=== PATIENT | female | born 1990 | race Two or more races ===

== ENCOUNTER 2018-08-10 20:02 | Inpatient (IN) | payer OTHER ==
--- NOTE | 2018-08-10 20:10 | PDOC ---
History of Present Illness - General History Source: Patient, Care Provider, Legal Guardian(s) (Patient is mentally disabled, history given primarily from family) Exam Limitations: No Limitations - History of Present Illness Initial Comments: 08/10/18 21:21 The patient is a 28 year old female, with a significant past medical history of epilepsy and mental retardation who presents to the emergency department with right lower abdominal pain since last night. As per family the patient states the pain is associated with 12 episodes of vomiting, fevers, and chills. The patient reports her last episode of vomiting was 5pm today. The patient notes she did not take her medication today due to her poor po intake. Patient notes her last meal was last night (rice and beans). The patient denies chest pain, shortness of breath, headache or dizziness. The patient denies nausea, diarrhea or constipation. The patient denies dysuria, frequency, urgency and hematuria. PAST MEDICAL HISTORY: none reported PAST SURGICAL HISTORY: no significant history FAMILY HISTORY: no pertinent history SOCIAL HISTORY: Pt lives with family MEDICATIONS: reviewed ALLERGIES: As per nursing notes <Eugenio Johns - Last Filed: 08/10/18 21:32> - General History Source: Patient Exam Limitations: No Limitations - History of Present Illness Initial Comments: This is a 28-year-old female who comes in with her family for evaluation of abdominal pain nausea and vomiting. Patient has not had any fevers. Patient has 2 days of nausea vomiting and abdominal pain most of which improved this afternoon into evening after she was at a urgent care center however the urgent care center called family this evening and said to bring her to the hospital as her blood work was very abnormal. Patient is mentally handicapped so unable to really give adequate history. History is by family On my exam patient had no abdominal pain on deep palpation. Her bowel sounds were normal she appeared comfortable. Patient's white count was elevated so we'll obtain CAT scan 08/10/18 23:49 CAT scan shows inflammation in the pelvis in addition to that her appendix is at the upper limit of normal with some questionable inflammation in the area as well. Is uncertain whether the inflammation is secondary to what is going on her pelvis or something with her appendix. However on palpation there is no tenderness over the pelvic area or the appendix. Patient able to tolerate by mouth's here in the emergency room she did appear to be somewhat dehydrated so was given a liter fluid and is able to urinate. Urine showed a moderate amount of bacteria some white cells and patient has her menses so there was a moderate amount of red cells as well. Well start patient on ceftriaxone, blood cultures and urine culture were sent Discussed with hospitalist who has accepted the patient for an observation admission . Signout given to the admitting hospitalist, who accepts the patient. Discussed plan with the patient family at bedside, Patient and family aware of the plan and agree. Patient is clinically unchanged and stable. <Dimitry De La Torre I - Last Filed: 08/10/18 23:57> - General Chief Complaint: Pain, Acute Stated Complaint: ABDOMINAL PAIN Time Seen by Provider: 08/10/18 20:08 Past History <Eugenio Johns - Last Filed: 08/10/18 21:32> <Dimitry De La Torre I - Last Filed: 08/10/18 23:57> - Past Medical History Allergies/Adverse Reactions: Allergies Allergy/AdvReac Type Severity Reaction Status Date / Time No Known Allergies Allergy Verified 08/10/18 20:06 Home Medications: Ambulatory Orders Calcium Carbonate [Calcium] 600 mg PO DAILY 08/10/18 Folic Acid 1 mg PO DAILY 08/10/18 Lacosamide [Vimpat -] 50 mg PO BID 08/10/18 Lamotrigine [LaMICtal -] 100 mg PO DAILY 08/10/18 Rifampin 150 mg PO DAILY 08/10/18 levETIRAcetam [Keppra -] 1,500 mg PO BID 08/10/18 Review of Systems - Review of Systems Able to Perform ROS?: Yes Comments:: 08/10/18 21:27 General: (+) fevers (+) chills, no weakness, no weight loss HEENT: No change in vision. No sore throat,. No ear pain CardioVascular: No chest pain or shortness of breath Respiratory:No cough, or wheezing. Gastrointestinal:(+) abdominal pain (+) vomiting. no nausea, diarrhea or constipation, No rectal bleeding Genitourinary: No dysuria, hematuria, or frequency Musculoskeletal: No joint or muscle pain or swelling Neurologic: No headache, vertigo, dizziness or loss of consciousness Psychiatric: nor depression Skin: No rashes or easy bruising Endocrine: no increased thirst or abnormal weight change Allergic: no skin or latex allergy All other systems reviewed and normal All Other Systems: Reviewed and Negative <Eugenio Johns - Last Filed: 08/10/18 21:32> *Physical Exam - Vital Signs Last Vital Signs Temp Pulse Resp BP Pulse Ox 98.1 F 115 H 18 123/79 100 08/10/18 20:14 08/10/18 20:14 08/10/18 20:14 08/10/18 20:14 08/10/18 20:14 - Physical Exam Comments: 08/10/18 21:28 General: Well-nourished well-developed individual, no acute distress HEENT: Throat: (+) dry mucous membranes, tonsils normal, no erythema or exudate Neck: Supple, no meningeal signs, no lymphadenopathy Eyes::Pupils equal reactive and round, extraocular motion intact Chest: Nontender to palpation Cardiac: S1-S2 normal, regular rate and rhythm, no murmurs rubs or gallops Respiratory: Lungs clear to auscultation bilateral Abdomen: Soft, nondistended, normal bowel sounds, nontender to palpation diffusely Extremities: Warm, dry, no cyanosis, clubbing, or edema Skin: No rashes Neuro: Alert and oriented x3, nonfocal exam, grossly intact, normal gait Psych: Normal mood and affect <Eugenio Johns - Last Filed: 08/10/18 21:32> Moderate Sedation - Procedure Monitoring Vital Signs: Procedure Monitoring Vital Signs Temperature 98.1 F 08/10/18 20:14 Pulse Rate 115 H 08/10/18 20:14 Respiratory Rate 18 08/10/18 20:14 Blood Pressure 123/79 08/10/18 20:14 O2 Sat by Pulse Oximetry (%) 100 08/10/18 20:14 <Eugenio Johns - Last Filed: 08/10/18 21:32> ED Treatment Course - LABORATORY CBC & Chemistry Diagram: 08/10/18 21:00 08/10/18 21:10 - ADDITIONAL ORDERS Additional order review: 08/10/18 21:00 RBC 4.15 MCV 83.6 MCHC 32.0 RDW 15.7 H MPV 8.5 Neutrophils % 76.7 Lymphocytes % 12.7 Monocytes % 9.0 Eosinophils % 0.0 Basophils % 1.6 <Corj,Xhesika - Last Filed: 08/10/18 21:32> - LABORATORY CBC & Chemistry Diagram: 08/10/18 21:00 08/10/18 21:10 <Dimitry De La Torre I - Last Filed: 08/10/18 23:57> *DC/Admit/Observation/Transfer - Attestations Scribe Attestion: 08/10/18 21:33 Documentation prepared by Eugenio Johns, acting as medical billing service for Dimitry De La Torre MD <Eugenio Johns - Last Filed: 08/10/18 21:32> - Discharge Dispostion Decision to Admit order: Yes <Dimitry De La Torre I - Last Filed: 08/10/18 23:57> Diagnosis at time of Disposition: Pelvic inflammation in female, Cystitis Elevated WBC count Qualifiers: Leukocytosis type: unspecified Qualified Code(s): D72.829 - Elevated white blood cell count, unspecified - Discharge Dispostion Condition at time of disposition: Stable
[2018-08-10] MEDS ORDERED: SODIUM CHLORIDE 1,000 ML IV ONE (20:27)
[2018-08-10 21:14] LABS: BASO % 1.6 % (0-2.0); HEMATOCRIT 34.6 % (32.4-45.2); HEMOGLOBIN 11.1 GM/dl (10.7-15.3); LYMPH % 12.7 % (8-40); MCH 26.8 pg (25.7-33.7); MEAN CELL VOLUME 83.6 fl (80-96); MEAN PLT VOLUME 8.5 fl (7.5-11.1); NEUT % 76.7 % (42.8-82.8); PLATELET COUNT 591 K/MM3 (134-434); RBC 4.15 M/mm3 (3.60-5.2); RDW 15.7 % (11.6-15.6)
[2018-08-10 21:24] LABS: URINE COLOR DK YELLOW
[2018-08-10 21:25] LABS: URINE APPEARANCE CLOUDY; URINE BILIRUBIN 1+ (NEGATIVE); URINE GLUCOSE (UA) NEGATIVE (NEGATIVE); URINE KETONE TRACE (NEGATIVE); URINE NITRITE POSITIVE (NEGATIVE); URINE PROTEIN 2+ (NEGATIVE); URINE UROBILINOGEN 1 (0.2-1.0)
[2018-08-10 21:26] LABS: ALBUMIN 4.1 g/dl (3.4-5.0); ALK PHOS 63 U/L (45-117); ANION GAP 12 MMOL/L (8-16); BILIRUBIN,TOTAL 1.4 mg/dl (0.2-1); BLOOD UREA NITROGEN 14 mg/dl (7-18); CALCIUM 9.5 mg/dl (8.5-10); CHLORIDE 96 mmol/L (98-107); CO2 27 mmol/L (21-32); CREATININE 0.7 mg/dl (0.55-1.3); EPI CELLS 2+ /HPF; GLUCOSE,RANDOM 107 mg/dl (74-106); POTASSIUM 3.7 mmol/L (3.5-5.1); SGOT/AST 17 U/L (15-37); SGPT/ALT 14 U/L (13-61); SODIUM 135 mmol/L (136-145); TOT PROT 8.8 g/dl (6.4-8.2); URINE BACTERIA 4+ /hpf (NEGATIVE); URINE LEUK ESTERASE NEGATIVE (NEGATIVE); URINE WBC 0-2 (0-5)
[2018-08-10 21:48] LABS: LIPASE 107 U/L (73-393)
[2018-08-10] MEDS ORDERED: CEFTRIAXONE 1,000 MG in DEXTROSE 5%-WATER - 50 ML IVPB ONE (23:23)
[2018-08-10] MEDS ORDERED: cefTRIAXone SODIUM 1 GM VIAL ONE (23:25)
[2018-08-10] MEDS ORDERED: DEXTROSE 5%-0.45% SALINE 1,000 ML IV SCH (23:45)
[2018-08-11 01:27] VITALS: BMI 30.6
[2018-08-11] MEDS: DEXTROSE 5%-0.45% SALINE 1,000 ML IV SCH (02:32)
[2018-08-11 07:57] LABS: BASO % 0.2 % (0-2.0); HEMOGLOBIN 9.4 GM/dl (10.7-15.3); RDW 15.4 % (11.6-15.6)
[2018-08-11 08:04] LABS: EOS % 0.2 % (0-4.5); HEMATOCRIT 28.9 % (32.4-45.2); LYMPH % 14.3 % (8-40); MCH 27.6 pg (25.7-33.7); MCHC 32.6 g/dl (32.0-36.0); MEAN CELL VOLUME 84.6 fl (80-96); MEAN PLT VOLUME 8.2 fl (7.5-11.1); MONO % 8.2 % (3.8-10.2); NEUT % 77.1 % (42.8-82.8); PLATELET COUNT 463 K/MM3 (134-434); RBC 3.41 M/mm3 (3.60-5.2); WHITE BLOOD COUNT 11.3 K/mm3 (4.0-10.8)
[2018-08-11 08:06] LABS: AMYLASE 44 U/L (25-115); ANION GAP 11 MMOL/L (8-16); BLOOD UREA NITROGEN 11 mg/dl (7-18); CALCIUM 8.6 mg/dl (8.5-10); CHLORIDE 101 mmol/L (98-107); CO2 24 mmol/L (21-32); CREATININE 0.5 mg/dl (0.55-1.3); GLUCOSE,RANDOM 87 mg/dl (74-106); POTASSIUM 3.7 mmol/L (3.5-5.1); SODIUM 136 mmol/L (136-145)
[2018-08-11] MEDS: LACOSAMIDE 50 MG TABLET PO SCH ×2 (09:35→21:11)
[2018-08-11] MEDS: levETIRAcetam 500 MG TABLET (FP) PO SCH ×2 (09:36→21:12)
[2018-08-11] MEDS: lamoTRIgine 100 MG TABLET (FP) PO SCH (09:36)
--- NOTE | 2018-08-11 09:38 | HP ---
CHIEF COMPLAINT: RLQ pain PCP: Mother cannot locate info HISTORY OF PRESENT ILLNESS: Patient is a 28 year-old female, with a significant past medical history of epilepsy, mental retardation/developmental delay, left ovarian cyst, irregular menses, and hidradenitis suppurativa. Patient presented to the emergency department yesterday with abdominal pain since Thursday night. Patient's sister provides the history on this admission. Patient was readying for bed Thursday night when she complained of diffuse abdominal pain and started vomiting. From 11pm to 5pm the next day she vomited about a dozen times. There was associated chills. There have been no further episodes of vomiting since arrival to ED. ER course was notable for: (1) WBC 17.0k, afebrile (2) Total bili 1.4 (3) CTAP: multicystic ovaries; appendix borderline diameter 0.6cm with slight concentric wall thickening Recent Travel: No PAST MEDICAL HISTORY: Epilepsy Mental retardation/developmental delay Cystic ovaries with irregular menses Hidradenitis suppurativa PAST SURGICAL HISTORY: None reported Social History: Smoking: no Alcohol: no Drugs: no Family History: Allergies No Known Allergies Allergy (Verified 08/10/18 20:06) HOME MEDICATIONS: Home Medications Medication Instructions Recorded Calcium Carbonate [Calcium] 600 mg PO DAILY 08/10/18 Folic Acid 1 mg PO DAILY 08/10/18 Lacosamide [Vimpat -] 50 mg PO BID 08/10/18 Lamotrigine [LaMICtal -] 100 mg PO DAILY 08/10/18 Rifampin 150 mg PO DAILY 08/10/18 levETIRAcetam [Keppra -] 1,500 mg PO BID 08/10/18 REVIEW OF SYSTEMS: patient unable to provide due to developmental delay PHYSICAL EXAMINATION Vital Signs - 24 hr 08/10/18 08/10/18 08/11/18 20:14 23:54 00:33 Temperature 98.1 F 98.1 F 98.1 F Pulse Rate 115 H 117 H Pulse Rate [ 102 H Left] Respiratory 18 20 16 Rate Blood Pressure 123/79 144/74 Blood Pressure 120/80 [Right] O2 Sat by Pulse 100 97 Oximetry (%) 08/11/18 08/11/18 06:00 09:31 Temperature 98.5 F 98.9 F Pulse Rate 93 H 96 H Pulse Rate [ Left] Respiratory 20 18 Rate Blood Pressure 105/60 110/65 Blood Pressure [Right] O2 Sat by Pulse 96 Oximetry (%) GENERAL: Awake, alert. Answers questions simply and appropriately, interacting with family. Calm, cooperative, smiling, in no apparent distress. HEAD: Normal with no signs of trauma. EYES: Pupils equal, round and reactive to light, extraocular movements intact, sclera anicteric, conjunctiva clear. No lid lag. EARS, NOSE, THROAT: Ears normal, nares patent, oropharynx clear without exudates. Moist mucous membranes. NECK: Normal range of motion, supple without lymphadenopathy, JVD, or masses. LUNGS: Breath sounds equal, clear to auscultation bilaterally. No wheezes, and no crackles. No accessory muscle use. HEART: Regular rate and rhythm, normal S1 and S2 without murmur, rub or gallop. ABDOMEN: Soft, nontender, not distended, normoactive bowel sounds, no guarding, no rebound, no masses. MUSCULOSKELETAL: Normal range of motion at all joints. No bony deformities or tenderness. No CVA tenderness. UPPER EXTREMITIES: 2+ pulses, warm, well-perfused. No cyanosis. No clubbing. No peripheral edema. LOWER EXTREMITIES: 2+ pulses, warm, well-perfused. No calf tenderness. No peripheral edema. NEUROLOGICAL: Cranial nerves II-XII intact. Normal speech. SKIN: multiple small pustules both axilla, some draining Laboratory Results - last 24 hr 08/10/18 08/10/18 08/10/18 00:17 00:17 00:17 WBC 17.0 H RBC 4.15 Hgb 11.1 Hct 34.6 MCV 83.6 MCH 26.8 MCHC 32.0 RDW 15.7 H Plt Count 591 H MPV 8.5 Absolute Neuts (auto) 13.0 Neutrophils % 76.7 Lymphocytes % 12.7 Monocytes % 9.0 Eosinophils % 0.0 Basophils % 1.6 Sodium 135 L Potassium 3.7 Chloride 96 L Carbon Dioxide 27 Anion Gap 12 BUN 14 Creatinine 0.7 Creat Clearance w eGFR > 60 Random Glucose 107 H Lactic Acid Calcium 9.5 Total Bilirubin 1.4 H AST 17 ALT 14 Alkaline Phosphatase 63 Total Protein 8.8 H Albumin 4.1 Total Amylase Lipase 107 Serum , Qual Urine Color Dk yellow Urine Appearance Cloudy Urine pH 7.0 Ur Specific [place] 1.025 Urine Protein 2+ H Urine Glucose (UA) Negative Urine Ketones Trace H Urine Blood 3+ H Urine Nitrite Positive Urine Bilirubin 1+ H Urine Urobilinogen 1 Ur Leukocyte Esterase Negative Urine RBC 10-20 Urine WBC 0-2 Ur Epithelial Cells 2+ Urine Bacteria 4+ 08/11/18 08/11/18 08/11/18 00:15 00:15 07:15 WBC 11.3 H RBC 3.41 L Hgb 9.4 L Hct 28.9 L D MCV 84.6 MCH 27.6 MCHC 32.6 RDW 15.4 Plt Count 463 H MPV 8.2 Absolute Neuts (auto) 8.8 Neutrophils % 77.1 Lymphocytes % 14.3 Monocytes % 8.2 Eosinophils % 0.2 Basophils % 0.2 Sodium Potassium Chloride Carbon Dioxide Anion Gap BUN Creatinine Creat Clearance w eGFR Random Glucose Lactic Acid 0.6 Calcium Total Bilirubin AST ALT Alkaline Phosphatase Total Protein Albumin Total Amylase Lipase Serum , Qual Negative Urine Color Urine Appearance Urine pH Ur Specific [place] Urine Protein Urine Glucose (UA) Urine Ketones Urine Blood Urine Nitrite Urine Bilirubin Urine Urobilinogen Ur Leukocyte Esterase Urine RBC Urine WBC Ur Epithelial Cells Urine Bacteria 08/11/18 07:15 WBC RBC Hgb Hct MCV MCH MCHC RDW Plt Count MPV Absolute Neuts (auto) Neutrophils % Lymphocytes % Monocytes % Eosinophils % Basophils % Sodium 136 Potassium 3.7 Chloride 101 Carbon Dioxide 24 Anion Gap 11 BUN 11 Creatinine 0.5 L Creat Clearance w eGFR > 60 Random Glucose 87 Lactic Acid Calcium 8.6 Total Bilirubin AST ALT Alkaline Phosphatase Total Protein Albumin Total Amylase 44 Lipase Serum , Qual Urine Color Urine Appearance Urine pH Ur Specific [place] Urine Protein Urine Glucose (UA) Urine Ketones Urine Blood Urine Nitrite Urine Bilirubin Urine Urobilinogen Ur Leukocyte Esterase Urine RBC Urine WBC Ur Epithelial Cells Urine Bacteria ASSESSMENT/PLAN: 28 year-old female, with a significant past medical history of epilepsy, mental retardation/developmental delay, cystic ovaries with irregular menses and chronic axillary and groin abscesses. Admitted for acute appendicitis. Acute appendicitis --08/10 CTAP: appendix borderline diameter o.6cm and slight concentric wall thickening; multicystic ovaries with free fluid --WBC trending down --continue empiric ceftriaxone --to OR today with Dr. Land Left ovarian cyst --seen on transvaginal US in July 2017 --last seen by [facility] in February, recommended OCP for regulation of irregular menses, mother declined Hidradenitis suppurativa --follows with a moth proofer on a regular basis, last seen in June 2018 --outpatient followup Epilepsy --experiences seizures 2-3 times per month --continue lacosamide, lamictal, Keppra Developmental delay --at baseline functioning per mother and sister FEN Fluids: D51/2NS@42mL/hr Electrolytes: replete as indicated Nutrition: NPO DVT prophylaxis: SCDs, oob, ambulation Dispo: continues to require inpatient care. Full code. Visit type - Emergency Visit Emergency Visit: Yes ED Registration Date: 08/10/18 Care time: The patient presented to the Emergency Department on the above date and was hospitalized for further evaluation of their emergent condition. - New Patient This patient is new to me today: Yes Date on this admission: 08/11/18 - Critical Care Critical Care patient: No
[2018-08-11] MEDS ORDERED: RIFAMPIN 150 MG PO SCH (10:00)
[2018-08-11] MEDS ORDERED: CALCIUM (OYSTER SHELL) 500 MG TABLET (FP) PO SCH (10:00)
[2018-08-11] MEDS ORDERED: CEFTRIAXONE 1 G/50 ML PREMIX 50 ML IVPB SCH (10:00)
[2018-08-11] MEDS ORDERED: FOLIC ACID 1 MG TABLET (FP) PO SCH (10:00)
--- NOTE | 2018-08-11 11:04 | PN ---
Progress Note, Physician - Current Medication List Current Medications: Active Medications Ceftriaxone Sodium (Ceftriaxone 1 Gm-D5w Bag) 50 mls @ 100 mls/hr IVPB DAILY [facility]; Protocol Last Admin: 08/11/18 09:35 Dose: 100 mls/hr Dextrose/Sodium Chloride (D5-1/2ns -) 1,000 mls @ 42 mls/hr IV ASDIR [facility] Last Admin: 08/11/18 02:32 Dose: 42 mls/hr Lacosamide (Vimpat -) 50 mg PO BID [facility] Last Admin: 08/11/18 09:35 Dose: 50 mg Lamotrigine (Lamictal -) 100 mg PO DAILY [facility] Last Admin: 08/11/18 09:36 Dose: 100 mg Levetiracetam (Keppra -) 1,500 mg PO BID [facility] Last Admin: 08/11/18 09:36 Dose: 1,500 mg Non-Formulary Medication (Rifampin [Rifampin]) 150 mg PO DAILY [facility] - Objective Vital Signs: Vital Signs Temperature 98.9 F 08/11/18 09:31 Pulse Rate 96 H 08/11/18 09:31 Respiratory Rate 18 08/11/18 09:31 Blood Pressure 110/65 08/11/18 09:31 O2 Sat by Pulse Oximetry (%) 96 08/11/18 09:31 Constitutional: Yes: Well Nourished, No Distress, Calm Labs: CBC, BMP 08/11/18 07:15 08/11/18 07:15 Problem List - Problems (1) Appendicitis Code(s): K37 - UNSPECIFIED APPENDICITIS Qualifiers: Appendicitis type: acute appendicitis Acute appendicitis type: with localized peritonitis Appendicitis gangrene presence: without gangrene Appendicitis perforation presence: without perforation Appendicitis abscess presence: without abscess Qualified Code(s): K35.30 - Acute appendicitis with localized peritonitis, without perforation or gangrene (2) Pelvic inflammation in female Code(s): N73.9 - FEMALE PELVIC INFLAMMATORY DISEASE, UNSPECIFIED
--- NOTE | 2018-08-11 11:10 | CONSULT ---
Consult Consult Specialty:: General Surgery Reason for Consultation:: appendicistis - History of Present Illness Chief Complaint: Abdominal pain and vomiting History of Present Illness: 28 yo female PMH epilepsy, mental retardation who presents to the emergency department with right lower abdominal pain since last night. As per family the patient states the pain is associated with 12 episodes of vomiting, fevers, and chills. The patient reports her last episode of vomiting was 5pm today. The patient notes she did not take her medication today due to her poor po intake. Patient notes her last meal was last night (rice and beans). CT shows cystic inflamatory changes in bilateral adnexa. Questionable concentric thickening of appendix. we were asked to assess. 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 - Alcohol/Substance Use Hx Alcohol Use: No History of Substance Use: reports: None - Smoking History Smoking history: Never smoked Have you smoked in the past 12 months: No - Social History Usual Living Arrangement: Assisted Living Place of : [facility] History of Recent Travel: Yes Home Medications - Allergies Allergies/Adverse Reactions: Allergies Allergy/AdvReac Type Severity Reaction Status Date / Time No Known Allergies Allergy Verified 08/10/18 20:06 - Home Medications Home Medications: Ambulatory Orders Calcium Carbonate [Calcium] 600 mg PO DAILY 08/10/18 Folic Acid 1 mg PO DAILY 08/10/18 Lacosamide [Vimpat -] 50 mg PO BID 08/10/18 Lamotrigine [LaMICtal -] 100 mg PO DAILY 08/10/18 Rifampin 150 mg PO DAILY 08/10/18 levETIRAcetam [Keppra -] 1,500 mg PO BID 08/10/18 Review of Systems - Review of Systems Constitutional: reports: Fever, Loss of Appetite. denies: Chills Eyes: denies: Blind Spots, Recent Change in Vision HENT: denies: Difficult Swallowing, Throat Pain Neck: denies: Decreased ROM, Pain on Movement Cardiovascular: denies: Chest Pain, Palpitations Respiratory: denies: SOB Gastrointestinal: reports: Abdominal Pain, Nausea, Vomiting Genitourinary: denies: Burning, Discharge, Dysuria Breasts: reports: No Symptoms Reported. denies: Pain Musculoskeletal: denies: Muscle Cramps, Muscle Weakness Integumentary: denies: Eczema, Pruritis, Rash Neurological: reports: Confusion, Pre-Existing Deficit. denies: Seizure, Syncope Endocrine: denies: Unexplained Weight Gain, Unexplained Weight Loss Hematology/Lymphatic: denies: Easily Bruised, Excessive Bleeding Psychiatric: denies: Anxiety, Depression Physical Exam Vital Signs: Vital Signs Temperature 98.9 F 08/11/18 09:31 Pulse Rate 96 H 08/11/18 09:31 Respiratory Rate 18 08/11/18 09:31 Blood Pressure 110/65 08/11/18 09:31 O2 Sat by Pulse Oximetry (%) 96 08/11/18 09:31 Constitutional: Yes: Well Nourished, No Distress, Calm, Obese Eyes: Yes: Conjunctiva Clear, EOM Intact HENT: Yes: Atraumatic, Normocephalic Neck: Yes: Supple, Trachea Midline Cardiovascular: Yes: Regular Rate and Rhythm, S1, S2 Respiratory: Yes: Regular, CTA Bilaterally Gastrointestinal: Yes: Normal Bowel Sounds, Soft, Abdomen, Obese. No: Tenderness, Tenderness, Epigastrium, Tenderness, Rebound ...Rectal Exam: Yes: Deferred Renal/: No: CVA Tenderness - Left, CVA Tenderness - Right Breast(s): No: Gynecomastia, Skin Changes Musculoskeletal: No: Joint Stiffness, Joint Swelling, Muscle Pain Extremities: No: Cool, Cyanosis Edema: No Peripheral Pulses WNL: Yes Integumentary: No: Incision, Jaundice Neurological: Yes: Alert, Oriented Psychiatric: Yes: Alert, Oriented Labs: CBC, BMP 08/11/18 07:15 08/11/18 07:15 Imaging - Results Cat Scan: Report Reviewed, Image Reviewed (bilateral adnexal complex cysts and concentric swelling of appendix) Problem List - Problems (1) Appendicitis Assessment/Plan: 28yo female with quationable early appendicitis. She is unable to reliably provide clinical updates because of her developmental delay. So to be cautious we will proceed with appendectomy. This risks and benefits were discussed at lengths with the family who agrees NPO and IVF hydration IV antibiotics OR for lap appendectomy Discussed with patient risks, benefits and alternatives of laparoscopic possible open appendectomy, including but not limited to bleeding, infection, injury to adjacent structures, leak or injury, intraabdominal abscess, incisional hernia, need for further procedures, ; alternatives include antibiotics, delayed or no surgery - risks of this include failure of nonoperative therapy, perforation, sepsis, recurrence, . Patient desires to proceed with operation - will take to OR for above. Informed consent signed for same. Code(s): K37 - UNSPECIFIED APPENDICITIS Qualifiers: Appendicitis type: acute appendicitis Acute appendicitis type: with localized peritonitis Appendicitis gangrene presence: without gangrene Appendicitis perforation presence: without perforation Appendicitis abscess presence: without abscess Qualified Code(s): K35.30 - Acute appendicitis with localized peritonitis, without perforation or gangrene (2) Pelvic inflammation in female Code(s): N73.9 - FEMALE PELVIC INFLAMMATORY DISEASE, UNSPECIFIED (3) Epilepsy Code(s): G40.909 - EPILEPSY, UNSP, NOT INTRACTABLE, WITHOUT STATUS EPILEPTICUS Qualifiers: Epilepsy type: partial symptomatic Partial seizure type: with complex partial seizures Intractability: not intractable Status epilepticus: without status epilepticus Qualified Code(s): G40.209 - Localization-related ( focal) (partial) symptomatic epilepsy and epileptic syndromes with complex partial seizures, not intractable, without status epilepticus (4) Cognitive developmental delay Code(s): F81.9 - DEVELOPMENTAL DISORDER OF SCHOLASTIC SKILLS, UNSPECIFIED
[2018-08-11 11:14] LABS: ACTIVATED PTT 26.9 SECONDS (25.2-36.5)
[2018-08-11 11:18] LABS: INR 1.6 (0.82-1.09); PROTHROMBIN TIME (PATIENT) 17.7 SEC (10.2-13.0)
[2018-08-11] MEDS ORDERED: ONDANSETRON 4 MG/2 ML VIAL IVPUSH PRN (12:34)
[2018-08-11] MEDS ORDERED: LACTATED RINGERS SOLUTION 1,000 ML IV SCH (12:45)
[2018-08-11] MEDS ORDERED: PROPOFOL 20 ML ONE ×3 (13:04→13:54)
[2018-08-11] MEDS ORDERED: SUCCINYLCHOLINE CHLORIDE 200 MG/10 ML VIAL ONE ×2 (13:05→13:54)
[2018-08-11] MEDS ORDERED: KETOROLAC TROMETHAMINE 30 MG/1 ML VIAL ONE ×3 (13:05→13:58)
[2018-08-11] MEDS ORDERED: DEXAMETHASONE SOD PHOSPHATE 4 MG/1 ML VIAL ONE ×2 (13:05→13:58)
[2018-08-11] MEDS ORDERED: ROCURONIUM BROMIDE 50 MG/5 ML VIAL ONE ×2 (13:09→13:54)
[2018-08-11] MEDS ORDERED: fentaNYL CITRATE 250 MCG/5 ML VIAL ONE (13:53)
--- NOTE | 2018-08-11 13:59 | OP ---
Operative Note - Note: Operative Date: 08/11/18 Pre-Operative Diagnosis: acute appendictis Operation: laparoscopic appenectomy Findings: PID hemmoragic inflamatory changes all of over pelvis. Appendix was inflamed. Post-Operative Diagnosis: Same as Pre-op Surgeon: Henry Clayton Anesthesiologist/MACHINE TECHNICIAN: James Cruz Anesthesia: General, Local Specimens Removed: appendix Estimated Blood Loss (mls): 5 Drains, Volume Out (mls): 100 (UOP (intraop to)) Fluid Volume Replaced (mls): 500
[2018-08-11] MEDS ORDERED: BUPIVACAINE HCL/PF 0.5% (5MG/ML) 10 ML VIAL ONE (14:20)
[2018-08-11] MEDS ORDERED: NEOSTIGMINE METHYLSULFATE 0.5 MG/ML - 10 ML MDV ONE (14:36)
[2018-08-11] MEDS ORDERED: GLYCOPYRROLATE 0.2 MG/1 ML VIAL ONE (14:36)
[2018-08-11] MEDS ORDERED: CEFOXITIN SODIUM 2 GM in DEXTROSE 5%-WATER 100 ML IVPB SCH (16:30)
[2018-08-11] MEDS: CEFOXITIN SODIUM/DEXTROSE,ISO 2 GM/50 ML BAG IVPB SCH ×2 (20:00→21:12)
[2018-08-11] MEDS ORDERED: DOXYCYCLINE HYCLATE 100 MG VIAL ONE (20:22)
[2018-08-11] MEDS ORDERED: DEXTROSE 5%-WATER 100 ML IVPB ONE (20:22)
[2018-08-11] MEDS: DOXYCYCLINE INJECTION 100 MG in DEXTROSE 5%-WATER 100 ML IVPB SCH (21:12)
[2018-08-12] MEDS: CEFOXITIN SODIUM/DEXTROSE,ISO 2 GM/50 ML BAG IVPB SCH ×4 (02:30→20:21)
[2018-08-12] MEDS ORDERED: PT OWN MED DRAWER 7, Y5N ONE ×4 (04:57→20:19)
--- NOTE | 2018-08-12 08:38 | PN ---
Physical Exam: SUBJECTIVE: Patient seen and examined at bedside. Voices no complaints. OBJECTIVE: Vital Signs Period Temp Pulse Resp BP Sys/Concepcion Pulse Ox Last 24 Hr 97.9 F-98.9 F 75-108 17-19 107-135/61-85 94-100 GENERAL: The patient is awake, alert. Calm, smiling. Answers questions appropriate to developmental level. LUNGS: CTA HEART: Regular rate and rhythm, S1, S2 without murmur, rub or gallop. ABDOMEN: Soft, nontender, nondistended; surgical port edges well-approximated, no bleeding, no exudate, no erythema EXTREMITIES: 2+ pulses, warm, well-perfused, no edema. NEUROLOGICAL: Cranial nerves II through XII grossly intact. Laboratory Results - last 24 hr 08/11/18 08/11/18 08/11/18 10:40 10:40 10:45 PT with INR 17.7 H INR 1.60 H PTT (Actin FS) 26.9 Blood Type O POSITIVE O POSITIVE Antibody Screen Negative Active Medications Generic Name Dose Route Start Last Admin Trade Name Juan Carlosq PRN Reason Stop Dose Admin Fentanyl 25 mcg 08/11/18 12:34 Sublimaze Injection - IVPUSH [id number] PRN PAIN-PACU ORDER X 4 DOSES ONLY Dextrose/Sodium Chloride 1,000 mls @ 42 mls/hr 08/11/18 01:55 08/11/18 02:32 D5-1/2ns - IV 42 mls/hr ASDIR JAYLON Administration Lactated Ringer's 1,000 mls @ 75 mls/hr 08/11/18 12:45 08/11/18 16:33 Lactated Ringers Solution IV Not Given ASDIR JAYLON Cefoxitin Sodium 2 gm/ 100 mls @ 200 mls/hr 08/11/18 16:00 Dextrose IVPB Q6H-IV JAYLON Protocol Doxycycline Hyclate 100 mg/ 100 mls @ 100 mls/hr 08/11/18 22:00 08/11/18 21: 12 Dextrose IVPB 100 mls/hr BID JAYLON Administration Cefoxitin Sodium 2 gm in 50 mls @ 100 mls/hr 08/11/18 16:45 08/12/18 02:30 Mefoxin Premix (Restricted To Id) IVPB 08/12/18 09:29 100 mls/hr Q6H-IV JAYLON Administration Protocol Lacosamide 50 mg 08/11/18 10:00 08/11/18 21:11 Vimpat - PO 50 mg BID JAYLON Administration Lamotrigine 100 mg 08/11/18 10:00 08/11/18 09:36 Lamictal - PO 100 mg DAILY JAYLON Administration Levetiracetam 1,500 mg 08/11/18 10:00 08/11/18 21:12 Keppra - PO 1,500 mg BID JAYLON Administration Non-Formulary Medication 150 mg 08/11/18 10:00 Rifampin [Rifampin] PO DAILY JAYLON Ondansetron HCl 4 mg 08/11/18 12:34 Zofran Injection IVPUSH Q6H PRN NAUSEA AND/OR VOMITING ASSESSMENT/PLAN 28 year-old female, with a significant past medical history of epilepsy, mental retardation/developmental delay, cystic ovaries with irregular menses, and hidradenitis suppurativa. Admitted for acute appendicitis. Additional history * Patient is followed at the [facility] ([phone]). Her PCP is Dr. Evangelist Mak, last seen on 01/25/18; * Had a transvaginal US on 07/30/17 (see results summarized below); has never had CORPORATE SAFETY MANAGER exam per mother; patient is not sexually active but mother consents to STD workup Acute appendicitis s/p lap appendectomy 08/11 --POD#1, doing well, tolerating PO, pain is well-managed Left ovarian cyst --report of TV US done on 07/30/17 viewed on patient portal: ; h/o irregular menses, ovarian cyst; [employer] 8th grade; Uterus normal appearance; endometrium 4.03mm; cervix wnl; right ovary normal, no mass/cyst; left ovary cystic, simple; difficult study, patient not able to tolerate --CTAP on 08/10/18: multcystic ovaries --transvaginal US ordered, mother will consent --CORPORATE SAFETY MANAGER consult pending: Bobby May fellow: [phone] Hidradenitis suppurativa --follows with a photoengraver on a regular basis, last seen in June 2018 Epilepsy --experiences seizures 2-3 times per month --continue lacosamide, lamictal, Keppra Developmental delay --at baseline functioning per mother and sister FEN Fluids: PO intake adequate Electrolytes: replete as indicated Nutrition: regular diet DVT prophylaxis: SCDs, oob, ambulation Dispo: continues to require inpatient care. Full code. Visit type - Emergency Visit Emergency Visit: Yes ED Registration Date: 08/11/18 Care time: The patient presented to the Emergency Department on the above date and was hospitalized for further evaluation of their emergent condition. - New Patient This patient is new to me today: No - Critical Care Critical Care patient: No
[2018-08-12 08:51] LABS: BASO % 0.1 % (0-2.0); HEMATOCRIT 30.1 % (32.4-45.2); HEMOGLOBIN 9.6 GM/dl (10.7-15.3); LYMPH % 8.8 % (8-40); MCH 26.8 pg (25.7-33.7); MCHC 31.9 g/dl (32.0-36.0); MEAN CELL VOLUME 83.9 fl (80-96); MEAN PLT VOLUME 8.2 fl (7.5-11.1); MONO % 5.3 % (3.8-10.2); NEUT % 85.8 % (42.8-82.8); PLATELET COUNT 524 K/MM3 (134-434); RBC 3.59 M/mm3 (3.60-5.2); RDW 15.2 % (11.6-15.6); WHITE BLOOD COUNT 14.1 K/mm3 (4.0-10.8)
[2018-08-12 09:09] LABS: ALBUMIN 3.2 g/dl (3.4-5.0); ALK PHOS 59 U/L (45-117); ANION GAP 11 MMOL/L (8-16); BILIRUBIN,TOTAL 0.7 mg/dl (0.2-1); BLOOD UREA NITROGEN 8 mg/dl (7-18); CHLORIDE 101 mmol/L (98-107); CO2 24 mmol/L (21-32); CREATININE 0.5 mg/dl (0.55-1.3); GLUCOSE,RANDOM 96 mg/dl (74-106); MAGNESIUM 1.7 mg/dL (1.8-2.4); POTASSIUM 4.1 mmol/L (3.5-5.1); SGOT/AST 13 U/L (15-37); SGPT/ALT 11 U/L (13-61); SODIUM 136 mmol/L (136-145); TOT PROT 7.5 g/dl (6.4-8.2)
[2018-08-12] MEDS ORDERED: DOXYCYCLINE HYCLATE 100 MG VIAL ONE ×2 (09:39→21:09)
[2018-08-12] MEDS ORDERED: DEXTROSE 5%-WATER 100 ML IVPB ONE ×2 (09:39→21:09)
[2018-08-12] MEDS: lamoTRIgine 100 MG TABLET (FP) PO SCH (09:59)
[2018-08-12] MEDS: DOXYCYCLINE INJECTION 100 MG in DEXTROSE 5%-WATER 100 ML IVPB SCH ×2 (09:59→21:13)
[2018-08-12] MEDS: levETIRAcetam 500 MG TABLET (FP) PO SCH ×2 (09:59→21:13)
[2018-08-12] MEDS: LACOSAMIDE 50 MG TABLET PO SCH ×2 (09:59→21:13)
[2018-08-12] MEDS: DEXTROSE 5%-0.45% SALINE 1,000 ML IV SCH (10:00)
--- NOTE | 2018-08-12 10:01 | PN ---
Progress Note (short form) - Note Progress Note: ID CONSULT DICTATED S/P APPENDECTOMY RADIOGRAPHIC/ LAPAROSCOPIC EVIDENCE OF PID AWAIT C/S CONTINUE CEFOXITIN/ DOXYCYCLINE LOANS OFFICER EVALUATION
[2018-08-12] MEDS: CEFOXITIN SODIUM 2 GM in DEXTROSE 5%-WATER - 100 ML IVPB SCH ×2 (10:11→10:13)
--- NOTE | 2018-08-12 11:24 | PN ---
Progress Note (short form) - Note Progress Note: anesthesia post op note. POD#1. S/P Appendectomy. VSS. No apparent post anesthesia complications.
--- NOTE | 2018-08-12 11:27 | CONS ---
DATE OF CONSULTATION: DATE OF DICTATION: 08/12/2018 HISTORY OF PRESENT ILLNESS: The patient is a 28-year-old developmentally delayed female who is evaluated for possible PID. She presented to the emergency room on August 10, 2018. She had developed abdominal pain on the evening of August 09. She complained of lower abdominal pain associated with nausea and vomiting. Pain was primarily in the right lower quadrant and was associated with multiple episodes of nausea, vomiting, anorexia, fever and chills. She was evaluated in the emergency room where she was noted to have a white blood cell count of 17,000. A CAT scan of the abdomen and pelvis was obtained and showed bilateral enlarged ovaries with the appearance of multilocular multicystic ovaries with soft tissue stranding. In addition the appendix was borderline in size and there was questionable periappendiceal soft tissue stranding. Patient was taken to the operating room where a laparoscopic appendectomy was performed. According to the operative note she had evidence of pelvic inflammation. Infectious Disease consultation was requested for possible PID. She was empirically treated with cefotaxime and doxycycline. History was obtained from the chart as well as the hospitalist. She is developmentally delayed and is apparently not sexually active. She denied any genitourinary complaints. PAST MEDICAL HISTORY: Positive for developmental delay, epilepsy, hydradenitis suppurativa. ALLERGIES: No known allergies. SOCIAL HISTORY: Lives at home with family members. Nonsmoker. Nondrinker. SYSTEMS REVIEW:Neurologic: No loss of consciousness, seizure activity, focal weakness. Cardiac: Negative chest pain or palpitations. Respiratory: Negative cough or sputum production. Gastrointestinal: As per HPI. Genitourinary: Negative for urinary tract infection. LABORATORY DATA: White count on admission 17,000, presently 14.1, hematocrit 30.1, platelet count 524. Creatinine 0.5. Urinalysis: White cells 0 to 2. Blood and urine cultures are pending. Urine test negative. PHYSICAL EXAMINATION:General: She is awake and alert. She is not acutely toxic appearing. Vital Signs: Temperature 98.3, blood pressure 122/74, pulse 82, regular, respirations 18 per minute. HEENT: Sclerae anicteric. Cardiac: Heart sounds S1, S2. Lungs: Clear. Abdomen: Soft. There is no tenderness elicited. There are laparoscopic wounds present in the umbilicus and the left lower quadrant . No evidence of infection. No suprapubic or flank tenderness. Extremities: Negative for edema. Negative Homans sign. IMPRESSION: 1. Postoperative day number 1 status post laparoscopic appendectomy. 2. Radiographic and laparoscopic evidence of pelvic inflammatory disease. RECOMMENDATIONS: Await cultures. Urine for chlamydia and GC was obtained. Continue empiric antibiotic coverage with cefoxitin and doxycycline. Gynecology consultation is advised at this time. This was communicated to the hospitalist at the time of the consultation. Thank you for the kind referral. CHRISTIANO KENNEY M.D. [id number]
--- NOTE | 2018-08-12 13:12 | PN ---
Progress Note, Physician History of Present Illness: 28 yo female PMH epilepsy, mental retardation who presents to the emergency department with right lower abdominal pain since last night. As per family the patient states the pain is associated with 12 episodes of vomiting, fevers, and chills. She has been hemodynamically stable post operatively. - Current Medication List Current Medications: Active Medications Doxycycline Hyclate 100 mg/ (Dextrose) 100 mls @ 100 mls/hr IVPB BID JAYLON Last Admin: 08/12/18 09:59 Dose: 100 mls/hr Cefoxitin Sodium 2 gm/ (Dextrose) 100 mls @ 200 mls/hr IVPB Q6H-IV JAYLON; Protocol Lacosamide (Vimpat -) 50 mg PO BID [facility] Last Admin: 08/12/18 09:59 Dose: 50 mg Lamotrigine (Lamictal -) 100 mg PO DAILY [facility] Last Admin: 08/12/18 09:59 Dose: 100 mg Levetiracetam (Keppra -) 1,500 mg PO BID [facility] Last Admin: 08/12/18 09:59 Dose: 1,500 mg Non-Formulary Medication (Rifampin [Rifampin]) 150 mg PO DAILY [facility] Ondansetron HCl (Zofran Injection) 4 mg IVPUSH Q6H PRN PRN Reason: NAUSEA AND/OR VOMITING - Objective Vital Signs: Vital Signs Temperature 98.3 F 08/12/18 09:56 Pulse Rate 82 08/12/18 09:56 Respiratory Rate 18 08/12/18 09:56 Blood Pressure 122/74 08/12/18 09:56 O2 Sat by Pulse Oximetry (%) 95 08/12/18 09:56 Vital Signs Period Temp Pulse Resp BP Sys/Concepcion Pulse Ox Last 24 Hr 97.9 F-98.5 F 68-82 18-18 115-122/66-74 94-100 Constitutional: Yes: Well Nourished, No Distress, Calm, Obese Eyes: Yes: Conjunctiva Clear, EOM Intact HENT: Yes: Atraumatic, Normocephalic Neck: Yes: Supple, Trachea Midline Cardiovascular: Yes: Regular Rate and Rhythm, S1, S2 Respiratory: Yes: Regular, CTA Bilaterally Gastrointestinal: Yes: Normal Bowel Sounds, Soft, Abdomen, Obese, Tenderness ( incisional). No: Tenderness, Epigastrium, Tenderness, Rebound ...Rectal Exam: Yes: Deferred Genitourinary: No: CVA Tenderness - Left, CVA Tenderness - Right Musculoskeletal: No: Muscle Pain, Muscle Weakness Extremities: No: Cool, Cyanosis Edema: No Peripheral Pulses WNL: Yes Peripheral Pulses: Left Radial: 2+, Right Radial: 2+, Left Doralis Pedis: 2+, Right Dorsalis Pedis: 2+, Left Femoral: 2+, Right Femoral: 2+ Wound/Incision: Yes: Clean/Dry, Well Approximated, Dressing Dry and Intact Neurological: Yes: Alert, Confusion. No: Oriented Psychiatric: Yes: Alert, Oriented Labs: CBC, BMP 08/12/18 07:50 08/12/18 07:50 INR, PTT INR 1.60 (0.82-1.09) H 08/11/18 10:40 Problem List - Problems (1) Appendicitis Assessment/Plan: 28yo female with quationable early appendicitis. She is unable to reliably provide clinical updates because of her developmental delay. POD#1 s/p laparoscopic appendectomy for likely a secondary appendicitis to pelvic inflammatory disease? pending Wound Treatment Rn evaluation. Resume diet as tolerated continue IV antibiotics trend labs OOB and ambulate encourage IS Will follow Code(s): K37 - UNSPECIFIED APPENDICITIS Qualifiers: Appendicitis type: acute appendicitis Acute appendicitis type: with localized peritonitis Appendicitis gangrene presence: without gangrene Appendicitis perforation presence: without perforation Appendicitis abscess presence: without abscess Qualified Code(s): K35.30 - Acute appendicitis with localized peritonitis, without perforation or gangrene (2) Pelvic inflammation in female Code(s): N73.9 - FEMALE PELVIC INFLAMMATORY DISEASE, UNSPECIFIED (3) Epilepsy Code(s): G40.909 - EPILEPSY, UNSP, NOT INTRACTABLE, WITHOUT STATUS EPILEPTICUS Qualifiers: Epilepsy type: partial symptomatic Partial seizure type: with complex partial seizures Intractability: not intractable Status epilepticus: without status epilepticus Qualified Code(s): G40.209 - Localization-related ( focal) (partial) symptomatic epilepsy and epileptic syndromes with complex partial seizures, not intractable, without status epilepticus (4) Cognitive developmental delay Code(s): F81.9 - DEVELOPMENTAL DISORDER OF SCHOLASTIC SKILLS, UNSPECIFIED
[2018-08-12] MEDS ORDERED: CEFOXITIN SODIUM 2 GM in DEXTROSE 5%-WATER - 100 ML IVPB SCH (15:00)
[2018-08-12] MEDS ORDERED: CEFOXITIN SODIUM/DEXTROSE,ISO 2 GM/50 ML BAG IVPB SCH ×2 (15:17→21:00)
--- NOTE | 2018-08-12 23:56 | OP ---
DATE OF OPERATION: 08/11/2018 PREOPERATIVE DIAGNOSIS: Acute appendicitis. POSTOPERATIVE DIAGNOSIS: Acute appendicitis. PROCEDURE: Laparoscopic appendectomy. ATTENDING SURGEON: Henry Clayton MD WEAVING MACHINE OPERATOR: None. ANESTHESIOLOGIST: James Cruz MD ANESTHESIA TYPE: General with local. Local consisted of 0.5% Marcaine. A total of 10 mL was given in an area block fashion at the port sites. ESTIMATED BLOOD LOSS: 5 mL. INTRAVENOUS FLUIDS: Administered intraoperatively was 500 mL of crystalloid. URINE OUTPUT: 100 mL of clear urine. Garcia was removed postoperative. BRIEF FINDINGS: Patient appears to have pelvic inflammatory disease changes, hemorrhagic injection of the serosal surface of all pelvic structures. Cystic ovaries are identified. Inflammatory changes all over the pelvis. Appendix was also inflamed. SPECIMEN: Appendix. INDICATIONS: Patient is a 28-year-old female presenting with a CT scan, which was abnormal showing inflammatory changes throughout the pelvis, polycystic ovaries bilaterally, and an adjacent appendix, which appeared inflamed, upper limits of normal to abnormal with inflammatory changes adjacent. The decision was made to proceed with appendectomy after discussion with her family given the fact that she is a poor historian and following this clinically would have an additional risk associated for rupture. She was counseled regarding the risks, benefits, and alternatives. Her sister did sign informed consent. She was taken for the procedure. DESCRIPTION OF PROCEDURE: Patient was brought to the operating room and placed in the supine position on the operating table. Lower extremities had SCDs placed to compression. Patient was induced of general anesthesia and endotracheally intubated without incident by anesthesia. Patient received intravenous antibiotics prior to the start of surgery. The anterior abdominal wall was clipped, prepped, and draped in the standard surgical fashion. A formal timeout was completed, identifying the operative site and planned procedure. With all parties in agreement, we began first with a supraumbilical approach with Bassem entry into the abdomen. It was scribed on the skin and then incised with a 15-blade scalpel, deepened and widened through the subcutaneous tissue with Bovie cautery to obtain hemostasis with dissection down to the midline fascia. When identified, it was scored and then opened with Bovie cautery. It was then elevated with Jaime's into the surgical wound. A 0 Vicryl stitch was laid in [id number] for ablation of the defect postoperatively. A blunt entry was made into the abdomen with a clamp and cleared of abdominal viscera, at which point a 12-mm Bassem port was installed and pneumoperitoneum established to 15 mmHg. This allowed for visualization of additional operating ports at the suprapubic position as well as the left lower quadrant. These were done under direct visualization. With access to the abdomen, we turned our attention to the right lower quadrant. We placed the patient in a steep Trendelenburg with slight right lateral decubitus for rotation. The small bowel was swept away from the cecum and the appendix was immediately identified on the surface. It appeared vermiform and inflamed. The remainder of the abdominal inspection revealed [id number] syndrome above the liver dome with slight wavy adhesions and then in the pelvis there were inflammatory changes consistent with the surgeon's previous experience with pelvic inflammatory disease. Serosal surfaces appeared inflamed and injected with dilated blood vessels. There was no free pus. We turned our attention back to the appendix, at which point the appendix was grasped midbody and a plane was cleared between the mesoappendix and the base of the cecum at the termination of the tinea. Stapler was introduced, EndoGIA 60 mm, from the umbilical port. The base of the appendix was transected with this stapler. The remainder of the mesoappendix was taken with LigaSure device, clearing the appendix and the mesoappendix. It was retrieved from the abdomen with the EndoCatch bag from the umbilical port as well. Care was taken to assure hemostasis. Once complete, the appendix was retrieved after the port sites were removed under direct visualization. With the patient then in the supine position, the port sites were closed, ablated at the umbilicus with a [id number], and then the skin was closed with 4-0 Vicryl in subcuticular fashion. Skin was cleaned. Sterile dressings were placed, including Dermabond. The patient was awoken from general anesthesia, having tolerated the procedure well. She was returned to recovery in stable condition. All instrument counts were correct postoperatively. MD HERIBERTO Aleman/[id number]
[2018-08-13] MEDS ORDERED: PT OWN MED DRAWER 7, Y5N ONE ×2 (03:23→09:13)
[2018-08-13] MEDS: CEFOXITIN SODIUM/DEXTROSE,ISO 2 GM/50 ML BAG IVPB SCH ×2 (04:01→09:19)
--- NOTE | 2018-08-13 07:10 | PN ---
Progress Note, Physician Chief Complaint: vomiting History of Present Illness: 28 yo female PMH epilepsy, mental retardation who presents to the emergency department with right lower abdominal pain since last night. As per family the patient states the pain is associated with 12 episodes of vomiting, fevers, and chills. She has been hemodynamically stable post operatively. - Current Medication List Current Medications: Active Medications Doxycycline Hyclate 100 mg/ (Dextrose) 100 mls @ 100 mls/hr IVPB BID [facility] Last Admin: 08/12/18 21:13 Dose: 100 mls/hr Cefoxitin Sodium (Mefoxin Premix (Restricted To Id)) 2 gm in 50 mls @ 200 mls/ hr IVPB Q6H-IV JAYLON; Protocol Last Admin: 08/13/18 04:01 Dose: 200 mls/hr Lacosamide (Vimpat -) 50 mg PO BID [facility] Last Admin: 08/12/18 21:13 Dose: 50 mg Lamotrigine (Lamictal -) 100 mg PO DAILY [facility] Last Admin: 08/12/18 09:59 Dose: 100 mg Levetiracetam (Keppra -) 1,500 mg PO BID [facility] Last Admin: 08/12/18 21:13 Dose: 1,500 mg Non-Formulary Medication (Rifampin [Rifampin]) 150 mg PO DAILY [facility] - Objective Vital Signs: Vital Signs Temperature 98.1 F 08/13/18 02:00 Pulse Rate 72 08/13/18 02:00 Respiratory Rate 17 08/13/18 02:00 Blood Pressure 123/65 08/13/18 02:00 O2 Sat by Pulse Oximetry (%) 96 08/13/18 02:00 Vital Signs Period Temp Pulse Resp BP Sys/Concepcion Pulse Ox Last 24 Hr 98.1 F-98.4 F 72-87 17-18 107-123/64-71 95-96 Constitutional: Yes: Well Nourished, No Distress, Calm Eyes: Yes: Conjunctiva Clear, EOM Intact HENT: Yes: Atraumatic, Normocephalic Neck: Yes: Supple, Trachea Midline Cardiovascular: Yes: Regular Rate and Rhythm, S1, S2 Respiratory: Yes: Regular, CTA Bilaterally Gastrointestinal: Yes: Normal Bowel Sounds, Soft. No: Tenderness, Tenderness, Epigastrium ...Rectal Exam: Yes: Deferred Genitourinary: No: CVA Tenderness - Left, CVA Tenderness - Right Musculoskeletal: No: Muscle Pain, Muscle Weakness Extremities: No: Cool, Cyanosis Edema: Yes Peripheral Pulses WNL: Yes Peripheral Pulses: Left Radial: 2+, Right Radial: 2+, Left Doralis Pedis: 2+, Right Dorsalis Pedis: 2+, Left Femoral: 2+, Right Femoral: 2+ Wound/Incision: Yes: Clean/Dry, Well Approximated, Dressing Dry and Intact Neurological: Yes: Alert, Oriented Psychiatric: Yes: Alert, Oriented Labs: CBC, BMP 08/12/18 07:50 08/12/18 07:50 INR, PTT INR 1.60 (0.82-1.09) H 08/11/18 10:40 Problem List - Problems (1) Appendicitis Assessment/Plan: 28yo female with quationable early appendicitis. She is unable to reliably provide clinical updates because of her developmental delay. POD#2 s/p laparoscopic appendectomy for likely a secondary appendicitis to pelvic inflammatory disease? pending Repairer And Checker evaluation. Resume diet as tolerated continue IV antibiotics trend labs OOB and ambulate encourage IS Agree with discharge Code(s): K37 - UNSPECIFIED APPENDICITIS Qualifiers: Appendicitis type: acute appendicitis Acute appendicitis type: with localized peritonitis Appendicitis gangrene presence: without gangrene Appendicitis perforation presence: without perforation Appendicitis abscess presence: without abscess Qualified Code(s): K35.30 - Acute appendicitis with localized peritonitis, without perforation or gangrene (2) Pelvic inflammation in female Code(s): N73.9 - FEMALE PELVIC INFLAMMATORY DISEASE, UNSPECIFIED (3) Epilepsy Code(s): G40.909 - EPILEPSY, UNSP, NOT INTRACTABLE, WITHOUT STATUS EPILEPTICUS Qualifiers: Epilepsy type: partial symptomatic Partial seizure type: with complex partial seizures Intractability: not intractable Status epilepticus: without status epilepticus Qualified Code(s): G40.209 - Localization-related ( focal) (partial) symptomatic epilepsy and epileptic syndromes with complex partial seizures, not intractable, without status epilepticus (4) Cognitive developmental delay Code(s): F81.9 - DEVELOPMENTAL DISORDER OF SCHOLASTIC SKILLS, UNSPECIFIED
[2018-08-13 07:23] LABS: BASO % 0.4 % (0-2.0); EOS % 1.6 % (0-4.5); HEMATOCRIT 29.8 % (32.4-45.2); HEMOGLOBIN 9.4 GM/dl (10.7-15.3); LYMPH % 25.4 % (8-40); MCH 26.3 pg (25.7-33.7); MCHC 31.5 g/dl (32.0-36.0); MEAN CELL VOLUME 83.4 fl (80-96); MEAN PLT VOLUME 8.2 fl (7.5-11.1); MONO % 7.9 % (3.8-10.2); NEUT % 64.7 % (42.8-82.8); PLATELET COUNT 537 K/MM3 (134-434); RBC 3.57 M/mm3 (3.60-5.2); RDW 15.3 % (11.6-15.6); WHITE BLOOD COUNT 9.1 K/mm3 (4.0-10.8)
[2018-08-13] MEDS ORDERED: DOXYCYCLINE HYCLATE 100 MG VIAL ONE (09:12)
[2018-08-13] MEDS ORDERED: DEXTROSE 5%-WATER 100 ML IVPB ONE (09:13)
[2018-08-13 09:19] VITALS: BP 107/66; PULSE 86; TEMP 98.2
[2018-08-13] MEDS: LACOSAMIDE 50 MG TABLET PO SCH (09:19)
[2018-08-13] MEDS: levETIRAcetam 500 MG TABLET (FP) PO SCH (09:19)
[2018-08-13] MEDS: lamoTRIgine 100 MG TABLET (FP) PO SCH (09:19)
[2018-08-13] MEDS: DOXYCYCLINE INJECTION 100 MG in DEXTROSE 5%-WATER 100 ML IVPB SCH (09:20)
--- NOTE | 2018-08-13 09:35 | PN ---
Progress Note, Physician History of Present Illness: AWAKE, ALERT DOING WELL NO C/O ABDOMINAL PAIN NO N/V TOLERATED DIET + BM NO F/C WBC WNL BC NEGATIVE GC/ CHLAMYDIA PENDING - Current Medication List Current Medications: Active Medications Doxycycline Hyclate 100 mg/ (Dextrose) 100 mls @ 100 mls/hr IVPB BID [facility] Last Admin: 08/13/18 09:20 Dose: 100 mls/hr Cefoxitin Sodium (Mefoxin Premix (Restricted To Id)) 2 gm in 50 mls @ 200 mls/ hr IVPB Q6H-IV JAYLON; Protocol Last Admin: 08/13/18 09:19 Dose: 200 mls/hr Lacosamide (Vimpat -) 50 mg PO BID [facility] Last Admin: 08/13/18 09:19 Dose: 50 mg Lamotrigine (Lamictal -) 100 mg PO DAILY [facility] Last Admin: 08/13/18 09:19 Dose: 100 mg Levetiracetam (Keppra -) 1,500 mg PO BID [facility] Last Admin: 08/13/18 09:19 Dose: 1,500 mg Non-Formulary Medication (Rifampin [Rifampin]) 150 mg PO DAILY [facility] - Objective Vital Signs: Vital Signs Temperature 98.2 F 08/13/18 09:17 Pulse Rate 86 08/13/18 09:17 Respiratory Rate 17 08/13/18 09:17 Blood Pressure 107/66 08/13/18 09:17 O2 Sat by Pulse Oximetry (%) 95 08/13/18 07:16 Constitutional: Yes: No Distress, Obese Cardiovascular: Yes: Regular Rate and Rhythm, S1, S2 Respiratory: Yes: CTA Bilaterally Gastrointestinal: Yes: Normal Bowel Sounds, Soft, Other (SURGICAL WOUNDS NO ERYTHEMA/ DRAINAGE). No: Tenderness Labs: CBC, BMP 08/13/18 07:10 08/12/18 07:50 INR, PTT INR 1.60 (0.82-1.09) H 08/11/18 10:40 Assessment/Plan POD #2 LAPAROSCOPIC APPENDECTOMY ?PID SURGICAL FOLLOW NOTED SCRAP IRON LOADER EVALUATION PENDING MAY SUBSTITUTE PO DOXYCYCLINE 100MG BID FOR TOTAL 14D COURSE OUTPATIENT SURG/ SCRAP IRON LOADER FOLLOW UP
--- NOTE | 2018-08-13 10:44 | CONSULT ---
Consult Consult Specialty:: Gynecology Referred by:: Niru Bourgeois NP Reason for Consultation:: Concern for PID - History of Present Illness Chief Complaint: abdominal pain, vomiting History of Present Illness: History obtained with use of vocational training instructor [id number] 28 yo female, G0 with developemental delay, LMP 2/14 presenting on 08/10 with diffuse abdominal pain and vomiting. Pt says she was febrile at home to 101 on . She went for laparoscopic appendectomy while inpt due to findings of pelvic/peritoneal inflammation and findings suggestive of appendicitis on CT scan. On surgery is was noted that pelvis is with extensive inflammation and looked more severe than appendix which only had mild inflammation. Pt denies any sexual contact, discussed with mother in the room and without. States she is has never had vaginal penetration or touching of any kind. Pt now is without pain and no longer vomiting. She overall feels well. She also states she has irregular periods possibly due to seizure medications. Denies abnl hair growth. OBhx: never [employer]ER[employer] hx: history of simple ovarian cyst no fibroids or infections. Irregular periods. PMH: epilepsy PSH: eye surgery 1998 and now [facility] [place] Meds: keppra, lamictal, vimpa, Calcium, folate Allergies: NKDA SH: developmentally delayed lives with mom and grandfather, goes to program during the day where she is watched by 2 female teachers. She states she has male friends but is not romatic with anyone and has had no physical contact with anyone. Denies alcohol, drug use or smoking. - History Source History Provided By: Patient, Family Member Limitations to Obtaining History: No Limitations - Past Medical History RN REGISTRY: Yes: Seizure - Alcohol/Substance Use Hx Alcohol Use: No History of Substance Use: reports: None - Smoking History Smoking history: Never smoked Have you smoked in the past 12 months: No - Social History Usual Living Arrangement: With Parent History of Recent Travel: Yes Home Medications - Allergies Allergies/Adverse Reactions: Allergies Allergy/AdvReac Type Severity Reaction Status Date / Time No Known Allergies Allergy Verified 08/10/18 20:06 - Home Medications Home Medications: Ambulatory Orders Calcium Carbonate [Calcium] 600 mg PO DAILY 08/10/18 Folic Acid 1 mg PO DAILY 08/10/18 Lacosamide [Vimpat -] 50 mg PO BID 08/10/18 Lamotrigine [LaMICtal -] 100 mg PO DAILY 08/10/18 Rifampin 150 mg PO DAILY 08/10/18 levETIRAcetam [Keppra -] 1,500 mg PO BID 08/10/18 Physical Exam Vital Signs: Vital Signs Temperature 98.2 F 08/13/18 09:17 Pulse Rate 86 08/13/18 09:17 Respiratory Rate 17 08/13/18 09:17 Blood Pressure 107/66 08/13/18 09:17 O2 Sat by Pulse Oximetry (%) 95 08/13/18 07:16 Constitutional: Yes: Well Nourished (overweight, no acute distress) Eyes: Yes: WNL HENT: Yes: Atraumatic, Normocephalic Neck: Yes: WNL Cardiovascular: Yes: Regular Rate and Rhythm Respiratory: Yes: Regular, CTA Bilaterally Gastrointestinal: Yes: WNL, Normal Bowel Sounds, Soft, Abdomen, Obese (nontender , nondistended) Renal/: Yes: WNL (Pt refused pelvic exam, on abdominal palpation over uterus pt denies pain) Musculoskeletal: Yes: WNL Extremities: Yes: WNL Edema: No Wound/Incision: Yes: Clean/Dry ...Motor Strength: WNL Psychiatric: Yes: Alert, Oriented Labs: CBC, BMP 08/13/18 07:10 08/12/18 07:50 Imaging - Results Cat Scan: Report Reviewed (enlarged ovaries with cystis structures) Ultrasound: Report Reviewed (pt unable to tolerate TVUS) Problem List - Problems (1) Pelvic inflammation in female Assessment/Plan: 28 yo G0 with developemental delay and irregular period presenting with abdominal pain and vomiting. Pt now s/p LSC appendectomy with concern on imaging and time of surgery for PID. Pt now treated with cefoxotin and doxycycline IV with resolution of pain. Pt also afebrile with no leukocytosis. Given pt without history of STI or any vaginal penetration it is less likely that this is a primary PID. PID could be due to other infectious causes that are not STI related but less likely. We are still awaiting STI screening to confirm GC/CT is in fact negative. This could be an appendicitis that seeded the pelvis and caused pelvic inflammation. Given treatment is working would continue with empiric treatment with PID and transition pt to oral doxycycline per ID to complete a 14 days course. - Pt and mother should see SW before leaving given primary PID is on the differential to assess for sexual activity/abuse - F/u STI screen (so far HIV and syphilis are negative) - Pt should follow up with [employer] to re-image ovaries and assess for resolution of infection as outpt within the next 4 weeks - Agree with plan to transition to PO doxycycline to complete 14 day course and discharge home (could give pt trial on PO before discharge to ensure pt remains afebrile without leukocytosis Pt discussed with Dr. Quinton MD [facility] [employer] attending, [facility] Code(s): N73.9 - FEMALE PELVIC INFLAMMATORY DISEASE, UNSPECIFIED
--- NOTE | 2018-08-13 11:51 | DS ---
Physical Exam: SUBJECTIVE: Patient seen and examined OBJECTIVE: Vital Signs Period Temp Pulse Resp BP Sys/Concepcion Pulse Ox Last 24 Hr 98.0 F-98.4 F 68-87 17-18 107-123/64-71 95-100 PHYSICAL EXAM GENERAL: The patient is awake, alert, and fully oriented, in no acute distress. HEAD: Normal with no signs of trauma. EYES: PERRL, extraocular movements intact, sclera anicteric, conjunctiva clear. ENT: Ears normal, nares patent, oropharynx clear without exudates, moist mucous membranes. NECK: Trachea midline, full range of motion, supple. LUNGS: Breath sounds equal, clear to auscultation bilaterally, no wheezes, no crackles, no accessory muscle use. HEART: Regular rate and rhythm, S1, S2 without murmur, rub or gallop. ABDOMEN: Soft, nontender, nondistended, normoactive bowel sounds, no guarding, no rebound, no hepatosplenomegaly, no masses. EXTREMITIES: 2+ pulses, warm, well-perfused, no edema. NEUROLOGICAL: Cranial nerves II through XII grossly intact. Normal speech, gait not observed. PSYCH: Normal mood, normal affect. SKIN: Warm, dry, normal turgor, no rashes or lesions noted. LABS Laboratory Results - last 24 hr 08/12/18 08/12/18 08/13/18 12:30 12:30 07:10 WBC 9.1 RBC 3.57 L Hgb 9.4 L Hct 29.8 L MCV 83.4 MCH 26.3 MCHC 31.5 L RDW 15.3 Plt Count 537 H MPV 8.2 Absolute Neuts (auto) 6.0 Neutrophils % 64.7 Lymphocytes % 25.4 Monocytes % 7.9 Eosinophils % 1.6 Basophils % 0.4 RPR Titer Nonreactive HIV Genotype Non reactive HOSPITAL COURSE: Date of Admission:08/11/18 Date of Discharge: 08/13/18 Pre hospital course Patient is a 28 year-old female, with a significant past medical history of epilepsy, mental retardation/developmental delay, left ovarian cyst, irregular menses, and hidradenitis suppurativa. Patient presented to the emergency department yesterday with abdominal pain since Thursday night. Patient's sister provides the history on this admission. Patient was readying for bed Thursday night when she complained of diffuse abdominal pain and started vomiting. From 11pm to 5pm the next day she vomited about a dozen times. There was associated chills. There have been no further episodes of vomiting since arrival to ED. ER course (1) WBC 17.0k, afebrile (2) Total bili 1.4 (3) CTAP: multicystic ovaries; appendix borderline diameter 0.6cm with slight concentric wall thickening Subsequent hospital course by problem list 28 year-old female, with a significant past medical history of epilepsy, mental retardation/developmental delay, cystic ovaries with irregular menses, and hidradenitis suppurativa. Admitted for acute appendicitis. Extensive pelvic inflammation observed during laporoscopic surgery concerning for possible PID which prompted further workup. Patient is followed at the [facility] ([phone]). Her PCP is Dr. Evangelist Mak, last seen on 01/25/18. Acute appendicitis s/p lap appendectomy 08/11 --uncomplicated post-operative course, no fevers, tolerating PO, pain well- managed Multicystic ovaries r/o PID --had a transvaginal US on 07/30/17 and found to have simple cyst left ovary; during this admission, CTAP on 08/10/18 showed multcystic ovaries with lower pelvic edema; extensive pelvic inflammation observed during lap appy --patient and mother state patient is not sexually active and there is no suspicion for non-consensual sexual contact; patient attends the [facility] at [address] [place] [address] in the [place]; mother consented to transvaginal US, INSPECTOR FUEL HOSE exam, and STD testing --patient did not tolerate transvaginal ultrasound, test not diagnostic --seen and evaluated by Dr. Nadia Delatorre, [facility] [place] ([phone]) --C&G, HSVI&II, and hepatitis panels pending at time of discharge --RPR negative; HIV negative --treated empirically with cefoxitin x 2 days and IV doxy x 2 days; discharged on PO doxy x 14 days --should get re-imaging in 4 weeks --mother and sister fully advised of all test results; discharge plan discussed in detail Hidradenitis suppurativa --follows with a process design chemical engineer on a regular basis, last seen in June 2018 Epilepsy --experiences seizures 2-3 times per month; no seizure activity during hospital stay --continue lacosamide, lamictal, Keppra Developmental delay --at baseline functioning per mother and sister Sister: Em Bullock [phone] Mother: Trudi Bullock (Urdu-speaking only) Minutes to complete discharge: 35 Discharge Summary Reason For Visit: ABDOMINAL PAIN Current Active Problems Appendicitis (Acute) Cognitive developmental delay (Acute) Cystitis (Acute) Elevated WBC count (Acute) Epilepsy (Acute) Pelvic inflammation in female (Acute) Condition: Improved - Instructions Diet, Activity, Other Instructions: A prescription has been sent to your pharmacy for doxycycline, an antibiotic. Take this medication as directed and be sure to finish all the medication. You will need to follow up with Dr. Land, the surgeon, in two weeks (see instructions below). You will need to follow up with a athletic events scorer within four weeks. Postoperative instructions: You had a laparoscopic appendectomy on DATE by Dr. Henry Clayton of [facility]. Activity: Resume your usual activities gradually, but no heavy exertion or lifting more than 10-15 pounds for 1 month. Remove dressings 48 hours after surgery; sticky tapes underneath will fall off by themselves. You may shower daily starting then, just pat the incision areas dry. No bath or swimming until skin incisions have healed. Eat lightly at first, but advance to your usual diet as tolerated. Pain: For pain, you may use and alternate Tylenol (acetaminophen) 1-2 pills and/ or ibuprofen 200 mg (1-3 pills) every 6 hours each as needed; this means that you can take one OR the other at 3-hour intervals. If you are prescribed a Tylenol/narcotic combination for severe pain, use it instead of plain Tylenol as needed and switch back when your pain starts decreasing. Do not take more than 4000mg of acetaminophen in a day. Take medications as prescribed or indicated on the labeling. Follow-up: Call Dr. Clayton' office at [phone] to make your postop appointment (Thursday in approximately 2 weeks after surgery). Clinic is held in the Diagnostic [facility] on the first floor of [facility]. Call the office if you have: * increasing pain not responsive to pain medication * fever of 101F or higher * vomiting * unusual or increasing bleeding or drainage from wounds * increasing redness or swelling at wound sites * inability to urinate Also, see your primary medical doctor within 1-2 weeks. Referrals: Henry Clayton MD [Staff Physician] - Disposition: HOME - Home Medications Comprehensive Discharge Medication List: Ambulatory Orders Calcium Carbonate [Calcium] 600 mg PO DAILY 08/10/18 Folic Acid 1 mg PO DAILY 08/10/18 Lacosamide [Vimpat -] 50 mg PO BID 08/10/18 Lamotrigine [LaMICtal -] 100 mg PO DAILY 08/10/18 Rifampin 150 mg PO DAILY 08/10/18 levETIRAcetam [Keppra -] 1,500 mg PO BID 08/10/18 This patient is new to me today: No Emergency Visit: Yes ED Registration Date: 08/11/18 Care time: The patient presented to the Emergency Department on the above date and was hospitalized for further evaluation of their emergent condition. Critical Care patient: No - Discharge Referral Referred to [facility] Med P.C.: No
[2018-08-14 08:06] LABS: HEP.C VIRUS AB <0.1 s/co ratio (0.0-0.9)
--- NOTE | 2018-08-17 16:16 | PATH ---
Surgical Pathology Report Patient Name: RAGHU GALLARDO Med. Rec. #: [id number] /Age/Gender: 1990 (Age: 28) / F Account: [id number] Location: [facility] MED-SURG Taken: 08/11/2018 Received: 08/11/2018 Reported: 08/17/2018 Physicians: Henry Clayton M.D. Specimen(s) Received APPENDIX Clinical History Abdominal pain Final Diagnosis APPENDIX, APPENDECTOMY: PERIAPPENDICITIS AND FEW ACUTE INFLAMMATORY CELLS IN THE APPENDICEAL LUMEN AND THE MUSCULARIS PROPRIA. Electronically Signed Nanette Marc M.D. Gross Description Received in formalin, labeled "appendix," is a 3.8 cm. in length vermiform appendix with a stapled margin of resection and abundant attached fat. The serosa is devries neumann and smooth. Sectioning reveals an unremarkable lumen. The wall of the appendix averages 0.1 cm. in thickness. Handbag Designer sections are submitted in one cassette. Additional cassettes are submitted as follows: #2-margin of resection; 3-remainder of specimen. 08/13/2018 [facility]08/13/2018
== END 2018-08-13 13:42 | disposition home or self-care (01) | DRG 343 ==
LOC: FER 20:02 → FM/S 23:53 → UNDOADMOB 08-11 00:15 → FM/S 08-11 17:29 → OBSVTOIN 08-11 18:39
PROVIDERS: ADMIT Internal Medicine; ATTEND Nurse Practitioner Acute Care
PROC: 0DTJ4ZZ Resection of Appendix, Percutaneous Endoscopic Approach (ICD-10-PCS; principal; 2018-08-11 14:36)
DX: K35.890 Other acute appendicitis without perforation or gangrene (principal); F79 Unspecified intellectual disabilities; G40.909 Epilepsy, unspecified, not intractable, without status epilepticus; L73.2 Hidradenitis suppurativa; N83.202 Unspecified ovarian cyst, left side; N73.9 Female pelvic inflammatory disease, unspecified; F81.9 Developmental disorder of scholastic skills, unspecified; E66.3 Overweight; Z68.30 Body mass index [BMI] 30.0-30.9, adult
CPT/HCPCS: 36415; 74177-TC; 76830-TC; 80048; 80053; 80074; 81003; 81015; 82150; 83605; 83690; 83735; 84703; 85025; 85610; 85730; 86593; 86694; 86850; 86900; 86901; 87040; 87086; 87389; 87491; 87591; 88304-TC; 94760; 99282-25; G0378; J7030